=== PATIENT | male | born 1990 | race Caucasian/White ===

== ENCOUNTER 2017-08-19 12:16 | Emergency (ER) | payer BC, OTHER ==
[2017-08-19 12:23] VITALS: BMI 33.8
[2017-08-19 12:24] VITALS: BP 152/92; PULSE 67; RESP 16; TEMP 98.3; O2SAT 99
[2017-08-19] MEDS ORDERED: Sodium Chloride 0.9% 1,000 ML IV STA (12:43)
--- NOTE | 2017-08-19 12:46 | ED PDOC ---
HPI: Abdomen Time Seen by Provider: 08/19/17 12:36 History Per: Patient Onset/Duration Of Symptoms: Days (1) Current Symptoms Are (Timing): Still Present Severity: Mild Pain Scale Rating Of: 3 Location Of Pain/Discomfort: RLQ Quality Of Discomfort: Unable To Describe Associated Symptoms: Nausea, Vomiting, Diarrhea, Urinary Symptoms Additional Complaint(s): Abd pain predominately RLQ since last night assoc with NVD. Also with dysuria. Past Medical History Vital Signs: Last Vital Signs Temp 98.3 F 08/19/17 12:23 Pulse 67 08/19/17 12:23 Resp 16 08/19/17 12:23 BP 152/92 H 08/19/17 12:23 Pulse Ox 99 08/19/17 12:46 - Medical History PMH: HIV - Family History Family History: States: Unknown Family Hx - Home Medications Home Medications: Ambulatory Orders Medication Instructions Recorded Ciprofloxacin HCl [Cipro] 500 mg PO BID #20 tab 08/19/17 Dicyclomine [Dicyclomine HCl] 10 mg PO Q8 #10 cap 08/19/17 - Allergies Allergies/Adverse Reactions: Allergies Allergy/AdvReac Type Severity Reaction Status Date / Time No Known Allergies Allergy Verified 08/19/17 12:47 Review of Systems Constitutional: Negative for: Fever Gastrointestinal: Positive for: Nausea, Vomiting, Abdominal Pain, Diarrhea Genitourinary Male: Positive for: Dysuria Musculoskeletal: Positive for: Back Pain Physical Exam - Physical Exam Appears: Positive for: Non-toxic, No Acute Distress Skin: Positive for: Normal Color, Warm, DRY Gastrointestinal/Abdominal: Positive for: Bowel Sounds, Soft, Tenderness (RLQ and epigastric area) Back: Negative for: L CVA Tenderness, R CVA Tenderness - Laboratory Results Result Diagrams: 08/19/17 13:26 08/19/17 13:55 - ECG O2 Sat by Pulse Oximetry: 99 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
[2017-08-19 13:42] LABS: BASO % 0.5 % (0.0-2.0); EOS # 0.1 K/uL (0.0-0.7); EOS % 2.6 % (0.0-4.0); HEMOGLOBIN 14.8 g/dL (12.0-18.0); LYMPH # 1.9 K/uL (1.0-4.3); LYMPH % 39.6 % (20.0-40.0); MEAN CELL VOLUME 87.3 fl (80.0-94.0); MEAN CORPUSCULAR HEMOGLOBIN 30.4 pg (27.0-31.0); MEAN CORPUSCULAR HGB CONC 34.8 g/dL (33.0-37.0); MEAN PLATELET VOLUME 6.5 fl (7.2-11.7); MONO # 0.5 K/uL (0.0-0.8); MONO % 10.4 % (0.0-10.0); NEUT # 2.3 K/uL (1.8-7.0); NEUT % 46.9 % (50.0-75.0); NRBC % 0.3 % (0.0-0.0); RBC 4.89 Mil/uL (4.40-5.90); RED CELL DISTRIBUTION WIDTH 12.7 % (11.5-14.5); WHITE BLOOD COUNT 4.8 K/uL (4.8-10.8)
[2017-08-19 14:44] LABS: BLOOD UREA NITROGEN 13 mg/dl (9-20)
[2017-08-19 14:45] LABS: CALCIUM 9.1 mg/dL (8.4-10.2)
[2017-08-19 14:46] LABS: ALB/GLOB RATIO 1.1 (1.0-2.1); ALBUMIN 4.3 g/dL (3.5-5.0); ALT/SGPT 56 U/L (21-72); AST/SGOT 38 U/L (17-59)
[2017-08-19 16:04] LABS: GFR AFRICAN-AMERICAN > 60; GFR NON-AFRICAN AMERICAN > 60
--- NOTE | 2017-08-19 16:47 | CT ---
PROCEDURE: CT Abdomen and Pelvis without intravenous contrast HISTORY: r/o kidney stone COMPARISON: None. TECHNIQUE: Helical CT of the abdomen and pelvis was performed without oral or intravenous contrast as per referring physician request.. Contrast Dose: None Radiation dose: Total exam DLP = 1850.24 mGy-cm. This CT exam was performed using one or more of the following dose reduction techniques: Automated exposure control, adjustment of the mA and/or kV according to patient size, and/or use of iterative reconstruction technique. FINDINGS: LOWER THORAX: Unremarkable. LIVER: Unremarkable. No gross lesion or ductal dilatation. GALLBLADDER AND BILE DUCTS: Unremarkable. PANCREAS: Unremarkable. No gross lesion or ductal dilatation. SPLEEN: Unremarkable. ADRENALS: Unremarkable. No mass. KIDNEYS AND URETERS: No radiodense urolithiasis, obstructive uropathy or perinephric reaction is appreciated bilaterally. VASCULATURE: Unremarkable. No aortic aneurysm. BOWEL: The stomach is nearly completely collapsed though there is limited matter retained food in the lumen and air. The bowel is nonobstructive. Prominent submucosal fatty changes are seen at the ascending colon through hepatic flexure in a pattern that may reflect chronic inflammation. An element of mural thickening is not completely excluded either in the same distribution and could reflect any acute segmental colitis. Terminal ileum appears unremarkable Clinically correlate further. Lack of contrast agents limits evaluation of bowel. APPENDIX: Unremarkable. Normal appendix. PERITONEUM: Unremarkable. No free fluid. No free air. LYMPH NODES: Unremarkable. No enlarged lymph nodes. BLADDER: Unremarkable. REPRODUCTIVE: Unremarkable. BONES: No acute fracture. OTHER FINDINGS: None. IMPRESSION: Limited, acute segmental colitis is difficult to exclude overlying chronic inflammation at the ascending colon through hepatic flexure segments of large bowel as discussed above. No bowel obstruction measure edema or ascites appreciable. No radiodense urolithiasis, obstructive uropathy or perinephric reaction is appreciated bilaterally.
== END 2017-08-19 17:35 | disposition home or self-care (01) ==
LOC: H.ER 12:16
DX: K52.9 Noninfective gastroenteritis and colitis, unspecified (principal)
CPT/HCPCS: 74176; 80053; 85025; 96374; 99283; J1885; J7040